=== PATIENT | male | born 1945 | race Caucasian/White ===

== ENCOUNTER 2024-12-08 10:12 | Observation (INO) ==
[2024-12-08] MEDS: 0.9 % SODIUM CHLORIDE 1000 ML 1,000 ML IV ONE (10:39)
[2024-12-08 11:15] LABS: Basophils%(Percent) Auto 0.7 (0.0-1.3); Eosinophils%(Percent) Auto 0.9 % (0.0-4.0); Granulocytes % - Auto 84.8 % (49.1-73.1); Granulocytes#(Absolute)- Auto 3.7 (2.0-6.2); Hematocrit 27.9 % (41.3-50.1); Mean Corpuscular Volume 107.3 fl (81.9-96.5); Monocytes #(Absolute)- Auto 0.4 (0.2-0.8); Monocytes %(Percent)- Auto 9.1 % (4.5-10.7); Platelet Count 86 K/uL (142-355); White Blood Count 4.4 K/uL (3.7-9.6)
[2024-12-08 11:22] LABS: Potassium 4.2 mmol/L (3.6-5.2)
[2024-12-08 12:50] LABS: Urine Appearance CLEAR (CLEAR); Urine Blood NEGATIVE (NEG - TRACE); Urine Color DARK YELLOW (STRAW/YELL.)
[2024-12-08 12:51] LABS: Specific Gravity Urine 1.015 (1.001-1.035); Urine Urobilinogen Normal (NORMAL)
[2024-12-08] MEDS ORDERED: ONDANSETRON HCL/PF 4 MG/2 ML VIAL INJ PRN (15:22)
--- NOTE | 2024-12-08 15:51 | Emergency Department Note ---
HPI - SOB/Dyspnea General Chief Complaint: SOB -Shortness of Breath Stated Complaint: shortness of breath Time Seen by Provider: 12/08/24 10:34 Source: patient, family and EMS Mode of arrival: ambulance Limitations: no limitations History of Present Illness HPI Narrative: 79-year-old male patient presents conscious alert and oriented x 4 to the ER with at bedside via EMS complaining of some shortness of breath. states the patient woke up about 3 AM this morning stating that he was short of breath. Patient states that has subsided however felt the need to bring the patient for further evaluation and treatment in the ER. Patient denies any chest pain. Denies any cough cold congestion. Denies any fever chills body aches. States that he has had multiple issues since September and has deteriorated. Patient states he is followed up by hematology and GI. Patient states he has a history of cirrhosis however denies drinking alcohol at this time. states that he has been sipping her wine however states that this has been quite sometime since. States the patient is not eating like he should nor is he drinking like he should. He states that he is taking some protein drinks daily however not sure this is sustaining nutrition MD elicited complaint: Reports shortness of breath; Denies cough, pain with inspiration, chest pain, "asthma attack" or anxiety Pertinent past history: Denies COPD, asthma or congestive heart failure Onset (ago): week(s) Context: Denies recent illness, occurred during exertion, choking/aspiration, medication noncompliance or allergen exposure Timing: Reports intermittent Severity: mild Exacerbating factors: Reports nothing Relieving factors: Reports nothing Known history of: Reports recurrent pneumonia; Denies COPD, asthma, congestive heart failure, diabetes, aspiration pneumonia, HIV, PE or DVT Associated symptoms: Reports denies other symptoms Treatment prior to arrival: Reports none Related Data Home oxygen amount: none Previous Rx's Medication Instructions Recorded levofloxacin 750 mg tablet 750 mg PO DAILY #10 tabs Allergies Allergy/AdvReac Type Severity Reaction Status Date / Time lorazepam (From Ativan) Allergy Unresponsiv Verified 12/08/24 10:49 e Sulfa (Sulfonamide Allergy Hives Verified 12/08/24 10:49 Antibiotics) Review of Systems Status of ROS 10 or more systems reviewed and unremark able except as noted in history and below Cardiovascular Denies: chest pain, palpitations or edema Respiratory Reports: shortness of breath; Denies: cough or wheezing PFSH PFSH Medical History Cirrhosis GERD (gastroesophageal reflux disease) Hypothyroidism Social History Smoking status: never smoker What is your current living situation: I presently have a place to live Exam Exam: Patient was evaluated in the ER found to be in no acute distress breathsounds are clear and equal bilaterally. Abdomen soft and nontender on palpation. Normoactive bowel sounds. No rigidity or distention is noted. Patient is extremely underweight and looks frail. Patient appears to have failure to thrive in speaking with the . Patient's daily oral intake is protein drinks. I am not sure that this is sustaining a healthy weight for the patient. Patient has a hemoglobin of 9.2. Hemoglobin is typically low on patient anyways however this is a decrease since October 2024. Hemoccult was positive for occult blood. Patient denies seeing any blood in his stool. Patient has had previous throat cancer. Patient also has had recent thrush to his oral airway. Patient is currently be treating for that by GI. EKG shows normal sinus rhythm with no ectopy noted. Chest x-ray shows no acute cardiopulmonary findings. Patient is negative for influenza and COVID-19. Patient has elevated creatinine and BUN today. Patient was given 1 L normal saline IVP. I have consulted with Melanie Boykin nurse practitioner who has agreed to admit patient observation for further evaluation and treatment. I discussed this with the family and the patient who agree as well to admission Constitutional: abnormal general appearance (appears older than stated age) and (frail appearing), no apparent distress and abnormal body habitus (underweight) Vital Signs - 24 hr 12/08/24 10:12 12/08/24 11:00 12/08/24 12:00 Temperature 97.7 F Pulse Rate 82 82 77 Respiratory Rate 16 16 15 Blood Pressure 154/75 148/71 145/65 Pulse Oximetry 95 96 99 Oxygen Delivery Me thod Room Air 12/08/24 13:00 12/08/24 14:00 Temperature Pulse Rate 78 82 Respiratory Rate 15 13 Blood Pressure 136/72 123/59 Pulse Oximetry 98 99 Oxygen Delivery Me thod HENMT: normocephalic, head/scalp atraumatic and hearing grossly normal bilaterally Eyes: PERRL and EOMs intact bilaterally Neck/C-Spine: visual inspection normal and trachea midline Lymph: no lymphadenopathy noted and no lymphedema noted Chest: inspection of chest normal and palpation of chest normal Respiratory: breath sounds equal bilaterally, normal respiratory effort and clear to auscultation bilaterally Cardiovascular: normal heart rate noted and regular rhythm noted Gastrointestinal: abdomen normal to inspection, abdomen soft to palpation and nontender to palpation Genitourinary: no CVA tenderness Back/Pelvis: spine normal to inspection Extremities: normal to inspection and normal to palpation Neurology: software configuration manager II-XII intact, no movement abnormality noted and no focal motor deficit noted Psychiatry: mental status grossly normal and oriented x3 Skin: skin color normal Course Vital Signs Vital signs: Vital Signs Temperature 97.7 F 12/08/24 10:12 Pulse Rate 82 12/08/24 10:12 Respiratory Rate 16 12/08/24 10:12 Blood Pressure 154/75 12/08/24 10:12 Pulse Oximetry 95 12/08/24 10:12 Oxygen Delivery Method Room Air 12/08/24 10:12 Temperature 98.3 F 12/08/24 15:15 Pulse Rate 81 12/08/24 15:15 Respiratory Rate 17 12/08/24 15:15 Blood Pressure 126/66 12/08/24 15:15 Pulse Oximetry 100 12/08/24 15:15 Oxygen Delivery Method Room Air 12/08/24 10:12 MDM - SOB/Dyspnea Differential Diagnosis Differential diagnosis: Likely acute exacerbation of chronic obstructive airways disease, congestive heart failure, community acquired pneumonia, asthma with exacerbation and pulmonary embolism Medical Records Attestation: I reviewed the patient's medical records. Lab Data Attestation: I reviewed the patient's lab results. Labs: Lab Results 12/08/24 12/08/24 12/08/24 Range/Units 11:00 11:25 12:15 WBC 4.4 (3.7-9.6) K/uL RBC 2.6 L (4.40-5.80) M/uL Hgb 9.2 L (14.0-17.4) gm/dL Hct 27.9 L (41.3-50.1) % MCV 107.3 H (81.9-96.5) fl MCH 35.5 H (27.6-33.7) pg MCHC 33.1 (33.0-35.7) g/dl RDW 21.6 H (11.0-14.8) % Plt Count 86 L (142-355) K/uL MPV 6.7 (6.0-10.4) fl Gran % 84.8 H (49.1-73.1) % Lymph % (Auto) 4.5 L (17.6-39.05) % [place] % (Auto) 9.1 (4.5-10.7) % Eos % (Auto) 0.9 (0.0-4.0) % Baso % (Auto) 0.7 (0.0-1.3) Lymph # (Auto) 0.2 L (0.8-2.9) [place] # (Auto) 0.4 (0.2-0.8) Eos # (Auto) 0.0 (0.0-0.3) Baso # (Auto) 0.0 (0.0-0.1) Absolute Gran (auto) 3.7 (2.0-6.2) Sodium 140 (136-145) mmol/L Potassium 4.2 (3.6-5.2) mmol/L Chloride 106.0 (98-107) mmol/L Carbon Dioxide 29 (21-32) mmol/L Anion Gap 5.0 (4-14) mEq/L BUN 35 H (7-18) mg/dL Creatinine 2.0 H (0.6-1.3) mg/dL Estimated GFR 33.1 (>59.9) Glucose 138 H (70-110) mg/dL Lactic Acid 1.5 H (0.27-1.43) mmol/L Calcium 8.9 (8.5-10.1) mg/dL Total Bilirubin 1.34 H (0.0-1.0) mg/dL AST 25 (15-37) U/L ALT 16 L (30-65) U/L Alkaline Phosphatase 148 H (50-136) U/L Total Protein 8.8 H (6.4-8.2) g/dL Albumin 2.7 L (3.4-5.0) g/dL Urine Color Dark yellow (STRAW/YELL.) Urine Appearance Clear (CLEAR) Ur Specific [place] 1.015 (1.001-1.035) Urine Protein Negative (NEGATIVE) Urine Glucose (UA) Normal (NORMAL) Urine Ketones Negative (NEGATIVE) Urine Occult Blood Negative (NEG - TRACE) Urine Nitrite Negative (NEGATIVE) Urine Bilirubin Negative (NEGATIVE) Urine Urobilinogen Normal (NORMAL) Ur Leukocyte Esterase Negative (NEGATIVE) Fluid pH 7.0 (5 - 9) Stl Occ Bld (IFOB) Scr Positive (Negative) COVID-19 (PHILIPP) Not detected (Not Detectd) Influenza Type A Ag Negative (Negative) Influenza Type B Ag Negative (Negative) Imaging Data Imaging ordered: Chest x-ray Attestation: I have reviewed the pertinent imaging results. ECG Data Attestation: I personally reviewed and interpreted this ECG as follows: Prior ECG tracings: not available for review Discharge Plan Discharge Patient Disposition: Admitted As Observation Condition: Stable Clinical Impression: Pancytopenia, SHUN (acute kidney injury), Generalized weakness, Failure to thrive, Occult blood positive stool Interventions: ED Discharge Assessment Last Done: 12/08/24 15:15 ED Discharge Vital Sign Last Done: 12/08/24 15:15 Emergency Department Charge Sheet Last Done: 12/08/24 15:15 Time of Disposition: 14:25 Discharge Date/Time: 12/08/24 15:15
[2024-12-08] MEDS: 0.9 % SODIUM CHLORIDE 1000 ML 1,000 ML IV SCH (16:14)
--- NOTE | 2024-12-08 16:34 | History & Physical Report ---
H&P: HPI History of Present Illness Chief complaint: positive hemocult, generalized weakness, talya Narrative: Pleasant 79 year old male admitted for Failure to thrive, Weakness, difficulty swallowing. He complained when he woke that he could not breathe and felt like he was going to . The who gives the history states she called 911. At ER patient v/s stable. Patient has history of Throat Cancer s/p surgery 7 years ago. He has cirrhosis, ckd stage [address] Price, anemia/pancytopenia, MDS and sees Hematology Dr. Worley in [place]. Hemoglobin today is 9.2, hemoccult positive, BUN 35, Creatinine 2.0 and Bilirubin 1.34. Ammonia level drawn but has to be sent out. states he recently had Barrium swallow performed at [facility]. She states they were told he does aspirate when he swallows. Hospitalist asked to admit for Observation. Will order head and neck CT. Patient with very poor intake and significant weight loss. Of note the patient had a scopoline patch placed on him around and due to lethargy and sleeping all the time the called the doctor and was told it was likely the patch and she could remove it. She did remove it and states he slept most of the next day. Possible contribution to current state?? Review of Systems Status of ROS 10 or more systems reviewed and unremark able except as noted in history and below Constitutional Reports: change in weight (weight loss), fatigue and malaise Ears, nose, mouth, and throat Reports: throat pain and difficulty swallowing Cardiovascular Reports: shortness of breath with exertion; Denies: chest pain, palpitations or edema Respiratory Reports: shortness of breath; Denies: cough or wheezing Gastrointestinal Reports: difficulty swallowing; Denies: coffee grounds in vomit, change in bowel habits, painful bowel movements, rectal pain or blood in stool Genitourinary Denies: painful urination Musculoskeletal Denies: back pain Integumentary/Breast Denies: rash, itching or redness Neurological Reports: weakness in extremities; Denies: headache Psychiatric Denies: anxiety or mood swings Endocrine Reports: fatigue and cold intolerance; Denies: excessive urination or excessive thirst Allergic/Immunologic Denies: wheezing [facility] Medical History (Updated 12/08/24 @ 16:27 by Melanie Crump NP) Cirrhosis GERD (gastroesophageal reflux disease) Hypothyroidism Social History Smoking status: never smoker What is your current living situation: I presently have a place to live Meds Home Medications and Allergies Allergies Allergy/AdvReac Type Severity Reaction Status Date / Time lorazepam (From Ativan) Allergy Unresponsiv Verified 12/08/24 10:49 e Sulfa (Sulfonamide Allergy Hives Verified 12/08/24 10:49 Antibiotics) Exam Constitutional: normal general appearance (ill appearing), no apparent distress, average body habitus (emaciated), no limitations (weak and lethargic) and alert (lethargy) Vital Signs - 24 hr 12/08/24 10:12 12/08/24 11:00 12/08/24 12:00 Temperature 97.7 F Pulse Rate 82 82 77 Pulse Rate [Left] Respiratory Rate 16 16 15 Blood Pressure 154/75 148/71 145/65 Blood Pressure [Le ft Arm] Pulse Oximetry 95 96 99 Oxygen Delivery Me thod Room Air 12/08/24 13:00 12/08/24 14:00 12/08/24 15:00 Temperature Pulse Rate 78 82 81 Pulse Rate [Left] Respiratory Rate 15 13 17 Blood Pressure 136/72 123/59 126/66 Blood Pressure [Le ft Arm] Pulse Oximetry 98 99 100 Oxygen Delivery Me thod 12/08/24 15:15 12/08/24 15:23 Temperature 98.3 F 97.6 F Pulse Rate 81 Pulse Rate [Left] 82 Respiratory Rate 17 19 Blood Pressure 126/66 Blood Pressure [Le ft Arm] 139/65 Pulse Oximetry 100 96 Oxygen Delivery Me thod Room Air HENMT: normocephalic, head/scalp atraumatic and oral mucous membranes normal (dry thrush) Eyes: conjunctivae normal and no scleral icterus Neck/C-Spine: visual inspection normal Lymph: no lymphadenopathy noted Chest: inspection of chest normal Respiratory: breath sounds equal bilaterally, normal respiratory effort, clear to auscultation bilaterally, no wheezes, no rales, no retractions and no use of accessory muscles Cardiovascular: normal heart rate noted and regular rhythm noted Gastrointestinal: abdomen normal to inspection, abdomen soft to palpation and normoactive bowel sounds (hypoactive x 4) Genitourinary: deferred Extremities: normal to inspection and normal to palpation Neurology: no focal motor deficit noted and speech normal Psychiatry: thought process normal, cooperative and affect normal Skin: skin color normal (pallor) Assessment and Plan Assessment and Plan (1) Lethargy: Code(s): R53.83 - Other fatigue (2) Difficulty in swallowing: Qualifiers: Dysphagia type: unspecified Qualified Code(s): R13.10 - Dysphagia, unspecified Code(s): R13.10 - Dysphagia, unspecified (3) Thrush: Code(s): B37.0 - Candidal stomatitis (4) GI bleeding: Code(s): K92.2 - Gastrointestinal hemorrhage, unspecified (5) MDS (myelodysplastic syndrome): Code(s): D46.9 - Myelodysplastic syndrome, unspecified (6) Acute kidney injury superimposed on chronic kidney disease: Code(s): N17.9 - Acute kidney failure, unspecified; N18.9 - Chronic kidney disease, unspecified (7) Failure to thrive in adult: Code(s): R62.7 - Adult failure to thrive (8) Cirrhosis: Qualifiers: Ascites presence: without ascites Hepatic cirrhosis type: unspecified hepatic cirrhosis Qualified Code(s): K74.60 - Unspecified cirrhosis of liver Code(s): K74.60 - Unspecified cirrhosis of liver Plan Gentle rehydration NS @ 75ml/hour Swish and swallow for oral thrush Regular soft mechanical diet Repeat CBC, CMP in am Continue home medications Obtain CT Head and Neck due to difficulty swallowing and with history of throat cancer. Poor prognosis given medical history. I have discussed wishes for code status with the patient and . Patient states they will discuss further. They both stated they do not wish to be on ventilator for illness which cannot be corrected. Currently a full code and I have made them both aware of what that means. Await ammonia levels Obtain blood cultures Obtain urine culture Results Labs Labs: CBC 12/08/24 Range/Units 11:00 WBC 4.4 (3.7-9.6) K/uL RBC 2.6 L (4.40-5.80) M/uL Hgb 9.2 L (14.0-17.4) gm/dL Hct 27.9 L (41.3-50.1) % Plt Count 86 L (142-355) K/uL Gran % 84.8 H (49.1-73.1) % Lymph % (Auto) 4.5 L (17.6-39.05) % [place] % (Auto) 9.1 (4.5-10.7) % Eos % (Auto) 0.9 (0.0-4.0) % Baso % (Auto) 0.7 (0.0-1.3) Lymph # (Auto) 0.2 L (0.8-2.9) [place] # (Auto) 0.4 (0.2-0.8) Eos # (Auto) 0.0 (0.0-0.3) Baso # (Auto) 0.0 (0.0-0.1) Absolute Gran (auto) 3.7 (2.0-6.2) CMP 12/08/24 11:00 Sodium 140 Potassium 4.2 Chloride 106.0 Carbon Dioxide 29 BUN 35 H Creatinine 2.0 H Glucose 138 H Calcium 8.9 Liver Function 12/08/24 Range/Units 11:00 Total Bilirubin 1.34 H (0.0-1.0) mg/dL AST 25 (15-37) U/L ALT 16 L (30-65) U/L Alkaline Phosphatase 148 H (50-136) U/L Albumin 2.7 L (3.4-5.0) g/dL Urine 12/08/24 12:15 Urine Color Dark yellow Urine Appearance Clear Ur Specific [place] 1.015 Urine Protein Negative Urine Glucose (UA) Normal
[2024-12-08] MEDS: LACTULOSE 20 GM/30 ML SOLUTION PO PRN (20:37)
[2024-12-09 04:30] LABS: Basophils%(Percent) Auto 0.7 (0.0-1.3); Eosinophils%(Percent) Auto 1.3 % (0.0-4.0); Granulocytes % - Auto 77.9 % (49.1-73.1); Granulocytes#(Absolute)- Auto 1.8 (2.0-6.2); Mean Corpuscular Volume 107.8 fl (81.9-96.5); Monocytes #(Absolute)- Auto 0.3 (0.2-0.8); Monocytes %(Percent)- Auto 11.9 % (4.5-10.7); Platelet Count 64 K/uL (142-355); White Blood Count 2.3 K/uL (3.7-9.6)
[2024-12-09 05:20] LABS: Potassium 4.1 mmol/L (3.6-5.2)
[2024-12-09 05:57] LABS: Hematocrit 22.7 % (41.3-50.1)
[2024-12-09 08:04] VITALS: BP 189/74; PULSE 88; RESP 19; TEMP 97.5
[2024-12-09] MEDS: PANTOPRAZOLE SODIUM 40 MG VIAL IVP SCH (08:55)
--- NOTE | 2024-12-09 10:29 | Discharge Summary ---
DS: Providers Provider Date of admission: 12/08/24 14:53 Primary care physician: Juan Perkins MD Attending physician on discharge: Melanie Crump Discharging clinician: Melanie Crump Anticipated date of discharge: 12/09/24 DS: Diagnosis Discharge Diagnosis (1) Lethargy: (2) Difficulty in swallowing: Qualifiers: Dysphagia type: unspecified Qualified Code(s): R13.10 - Dysphagia, unspecified (3) Thrush: (4) GI bleeding: (5) MDS (myelodysplastic syndrome): (6) Acute kidney injury superimposed on chronic kidney disease: (7) Failure to thrive in adult: (8) Cirrhosis: Qualifiers: Hepatic cirrhosis type: unspecified hepatic cirrhosis Ascites presence: without ascites Qualified Code(s): K74.60 - Unspecified cirrhosis of liver Plan Patient improved feeling much better today. Electrolytes and renal function improved. Hemoglobin decreased to 7.7 from 9 which is likely hemodilution. Patient has appointment to f/u with Hematology next week, however recommend moving follow up to this week. Head and Neck CT without contrast negative. Patient has been eating and drinking all night. Will discharge home to follow up with PCP and Hematology. DS: Summary Status at Discharge Functional status at discharge: independent ambulation Overall status at discharge: patient is back to baseline Time Spent with Patient Time attestation: Total time spent providing and/or coordinating discharge services:45 Exam Constitutional: normal general appearance (ill appearing), no apparent distress, average body habitus (emaciated), no limitations (weak and lethargic) and alert (lethargy) Vital Signs - 24 hr 12/08/24 11:00 12/08/24 12:00 12/08/24 13:00 Temperature Pulse Rate 82 77 78 Pulse Rate [Left] Respiratory Rate 16 15 15 Blood Pressure 148/71 145/65 136/72 Blood Pressure [Le ft Arm] Pulse Oximetry 96 99 98 Oxygen Delivery Me thod 12/08/24 14:00 12/08/24 15:00 12/08/24 15:15 Temperature 98.3 F Pulse Rate 82 81 81 Pulse Rate [Left] Respiratory Rate 13 17 17 Blood Pressure 123/59 126/66 126/66 Blood Pressure [Le ft Arm] Pulse Oximetry 99 100 100 Oxygen Delivery Me thod 12/08/24 15:23 12/08/24 15:49 12/08/24 20:00 Temperature 97.6 F 97.1 F L Pulse Rate Pulse Rate [Left] 82 87 78 Respiratory Rate 19 19 18 Blood Pressure Blood Pressure [Le ft Arm] 139/65 155/66 Pulse Oximetry 96 98 98 Oxygen Delivery Me thod Room Air Room Air Room Air 12/09/24 00:00 12/09/24 04:00 12/09/24 08:00 Temperature 97.6 F 97.6 F 97.5 F L Pulse Rate Pulse Rate [Left] 80 80 88 Respiratory Rate 17 17 19 Blood Pressure Blood Pressure [Le ft Arm] 157/89 156/77 189/74 Pulse Oximetry 96 97 99 Oxygen Delivery Ma thod Room Air Room Air Room Air HENMT: normocephalic, head/scalp atraumatic, hearing grossly normal bilaterally and oral mucous membranes normal Eyes: PERRL, EOMs intact bilaterally, conjunctivae normal and no scleral icterus Neck/C-Spine: visual inspection normal and trachea midline Lymph: no lymphadenopathy noted and no lymphedema noted Chest: inspection of chest normal Respiratory: breath sounds equal bilaterally, normal respiratory effort, clear to auscultation bilaterally, no wheezes, no rales, no retractions and no use of accessory muscles Cardiovascular: normal heart rate noted, regular rhythm noted, no gallop, no rub, no murmur, no JVD and peripheral pulses 2+ throughout Gastrointestinal: abdomen normal to inspection, abdomen soft to palpation, nontender to palpation and normoactive bowel sounds Genitourinary: no CVA tenderness deferred Back/Pelvis: spine normal to inspection Extremities: normal to inspection and normal to palpation Neurology: hose cementer II-XII intact, no movement abnormality noted, no focal motor deficit noted and speech normal Psychiatry: mental status grossly normal, oriented x3, thought process normal, cooperative and affect normal Skin: skin color normal (pallor) DS: Data Data Completed and Pending Labs on day of discharge: Labs from last 24 hours 12/09/24 12/08/24 12/08/24 04:00 12:15 11:25 WBC 2.3 L RBC 2.1 L Hgb 7.7 L Hct 22.7 L* MCV 107.8 H MCH 36.3 H MCHC 33.7 RDW 22.0 H Plt Count 64 L MPV 6.5 Gran % 77.9 H Lymph % (Auto) 8.2 L [place] % (Auto) 11.9 H Eos % (Auto) 1.3 Baso % (Auto) 0.7 Lymph # (Auto) 0.2 L [place] # (Auto) 0.3 Eos # (Auto) 0.0 Baso # (Auto) 0.0 Absolute Gran (auto) 1.8 L Sodium 143 Potassium 4.1 Chloride 111.0 H Carbon Dioxide 24 Anion Gap 8.0 BUN 31 H Creatinine 1.6 H Estimated GFR 43.3 Glucose 113 H Lactic Acid Calcium 8.4 L Phosphorus 3.6 Magnesium 1.7 L Total Bilirubin 1.06 H AST 27 ALT 15 L Alkaline Phosphatase 114 Total Protein 7.6 Albumin 2.2 L Urine Color Dark yellow Urine Appearance Clear Ur Specific [place] 1.015 Urine Protein Negative Urine Glucose (UA) Normal Urine Ketones Negative Urine Occult Blood Negative Urine Nitrite Negative Urine Bilirubin Negative Urine Urobilinogen Normal Ur Leukocyte Esterase Negative Fluid pH 7.0 Stl Occ Bld (IFOB) Scr Positive COVID-19 (PHILIPP) Influenza Type A Ag Influenza Type B Ag 12/08/24 11:00 WBC 4.4 RBC 2.6 L Hgb 9.2 L Hct 27.9 L MCV 107.3 H MCH 35.5 H MCHC 33.1 RDW 21.6 H Plt Count 86 L MPV 6.7 Gran % 84.8 H Lymph % (Auto) 4.5 L [place] % (Auto) 9.1 Eos % (Auto) 0.9 Baso % (Auto) 0.7 Lymph # (Auto) 0.2 L [place] # (Auto) 0.4 Eos # (Auto) 0.0 Baso # (Auto) 0.0 Absolute Gran (auto) 3.7 Sodium 140 Potassium 4.2 Chloride 106.0 Carbon Dioxide 29 Anion Gap 5.0 BUN 35 H Creatinine 2.0 H Estimated GFR 33.1 Glucose 138 H Lactic Acid 1.5 H Calcium 8.9 Phosphorus Magnesium Total Bilirubin 1.34 H AST 25 ALT 16 L Alkaline Phosphatase 148 H Total Protein 8.8 H Albumin 2.7 L Urine Color Urine Appearance Ur Specific [place] Urine Protein Urine Glucose (UA) Urine Ketones Urine Occult Blood Urine Nitrite Urine Bilirubin Urine Urobilinogen Ur Leukocyte Esterase Fluid pH Stl Occ Bld (IFOB) Scr COVID-19 (PHILIPP) Not detected Influenza Type A Ag Negative Influenza Type B Ag Negative Preliminary micro results at discharge 12/08/24 12:15 Urine Culture - Preliminary Urine,Clean Catch 12/08/24 11:00 Blood Culture - Preliminary Blood - Venous Draw (Peripheral) 12/08/24 11:00 Blood Culture - Preliminary Blood - Venous Draw (Peripheral) Discharge Plan Discharge Disposition: Home, Self-Care Condition: Stable Discharge Orders: Discharge Order (Routine); Ordered 12/09/24 Ordered By: Melanie Crump Activity: increase activity as tolerated Diet: advance to your usual diet Activity Restrictions/Additional Instructions: Follow up with Hematology this week pancytopenia. Follow up with new PCP this week. Follow up with GI for positive Hemoccult stool and liver disease. Seek medical attention immediately should patient become lethargic again in the future. Encourage PO fluid intake. Forms: Portal/Health Info Access Inst Follow-Ups: Juan Perkins MD [Primary Care Provider, Medical]
== END 2024-12-09 11:42 | disposition home or self-care (01) ==
LOC: ED 10:12 → MS 10:12
PROVIDERS: ADMIT Nurse Practitioner Family; ATTEND Nurse Practitioner Family
DX: Z88.2 Allergy status to sulfonamides; Z68.1 Body mass index [BMI] 19.9 or less, adult; E03.9 Hypothyroidism, unspecified; K21.9 Gastro-esophageal reflux disease without esophagitis; R13.10 Dysphagia, unspecified; D46.9 Myelodysplastic syndrome, unspecified; B37.0 Candidal stomatitis; N18.9 Chronic kidney disease, unspecified; R53.83 Other fatigue; N17.9 Acute kidney failure, unspecified; Z88.8 Allergy status to other drugs, medicaments and biological substances; D61.818 Other pancytopenia; I70.0 Atherosclerosis of aorta; R06.02 Shortness of breath; R62.7 Adult failure to thrive; K74.60 Unspecified cirrhosis of liver; R19.5 Other fecal abnormalities